=== PATIENT | male | born 1970 | race Caucasian/White ===

== ENCOUNTER 2023-07-04 04:32 | Emergency (ER) | payer OTHER, SELFPAY ==
[2023-07-04 04:35] VITALS: BP 142/92
--- NOTE | 2023-07-04 05:15 | ED.GENMED ---
History of Present Illness
General
Chief Complaint: Fall
Source: patient and spouse
Time Seen by Provider: 07/04/23 05:05
Travel History
Have you had any contact with someone who has COVID-19?: No
Do you have any symptoms of coronavirus? Fever > 100 degrees, chills, cough, shortness of breath, sore throat, loss of taste or smell, muscle aches, or headache?: No
History of Present Illness
History of Present Illness:
This patient is a 53-year-old male presents emergency department with complaints of discomfort after tripping over something while going to the bathroom in the middle the night about an hour prior to presentation, and striking the right anterior
lower chest on the nightstand. He noted immediate discomfort. This pain is worse with certain positions, coughing, or deep breath. He denies hemoptysis, back pain, head injury, loss of conscious, neck pain, numbness, tingling, or other complaints.
Past History
Past History
ED Past Medical History: HTN
ED Past Surgical History: Orthopedic
Social History
Tobacco: Non-smoker
Alcohol: Occasional
Drug: None
Personal:
Living: with family
Employment: Employed
Family History
Family History: Other (Noncontributory)
Phy Exam
Physical Exam
Physical Exam:
GENERAL: Alert , in no apparent distress
EYE: pupils equal and reactive, no photophobia
NECK: Supple, no significant adenopathy.
ENT: o/p clr, mmm, no signs of head or facial injury, no juan, no raccoon.
CARDIAC: Regular rate and rhythm .
LUNGS: Clear breath sounds bilaterally, no acute respiratory distress, no wheezes/rales/rhonchi. There is superficial abrasion noted at the right side anterior lower costal area with associated tenderness to palpation, no crepitus, no step-off
ABDOMEN: Soft, without focal tenderness, no r/g, no cvat
NEUROLOGICAL: Alert and oriented, no focal neuro deficits
SKIN: Warm and dry, skin intact.
MUSCULOSKELETAL: No edema, well perfused.
PSYCH: Normal and appropriate interaction.
Course
Orders/Labs/Results
Orders:
Orders
07/04/23 04:42
CR Ribs-right 3 Vw W/pa Chest* Urgent
Comment:
Reason For Exam: fall, pain, SOB
07/04/23 05:12
Oxycodone [Roxicodone] 10 mg PO NOW STA
Vital Signs
Initial and Last Documented VS:
Initial Vital Signs
Temp Pulse Resp BP Pulse Ox
98.1 F 96 22 142/92 95
07/04/23 04:35 07/04/23 04:35 07/04/23 04:35 07/04/23 04:35 07/04/23 04:35
Last Documented Vital Signs
Temp Pulse Resp BP Pulse Ox
98.1 F 96 22 142/92 95
07/04/23 04:35 07/04/23 04:35 07/04/23 04:35 07/04/23 04:35 07/04/23 04:35
*Critical Care Note
Total Time (30-74mins, 75-104mins- exclusive of procedures): Not Applicable
Update Note
Update Note:
Patient presents to the Emergency Department with ____chest wall injury
Number and Complexity of Problems Addressed at the Encounter
� Chronic conditions affecting care:
� Acute Exacerbation and/or Progression of Chronic Illness:
� Differential Diagnosis includes: But not limited to contusion, rib fracture, pneumothorax, hemothorax, etc.
Amount and/or Complexity of Data to be Reviewed and Analyzed
� I performed an independent evaluation of and my interpretation is:
EKG:
CT:
Xrays: Read by me, no pneumothorax, no effusion, no specific fracture noted
Laboratory Studies:
Other:
� Review of other/old records reveals:
� Clinical information was obtained by an independent historian: who is bedside
� Prescriptions/Medications Considered but not given:
� Further testing considered but not performed:
Risk of Complications and/or Morbidity or Mortality of Patient Management
� Social determinants of health affecting care:
� Discussion with other providers (PCP, Hospitalists, Consultants, etc):
� Escalation of care including admission/observation vs risk of discharge considered: 6:32 AM patient's pain improved although not fully resolved. No fracture or other abnormalities noted on x-ray, strongly suspect contusion
although patient aware that fracture is potentially possible. Management very similar in regards to anti-inflammatories, narcotics as needed with risk and benefits discussed with him regarding, continue deep breaths, etc. He asked that I refill
inhalers which I did. He is aware the importance of follow-up and reasons to return to the ER.
ED Attending Note
-
Portions of this chart may have been created with voice recognition software.� Occasional wrong word or��sound alike� substitutions may have occurred due to the inherent limitations of voice recognition software.
Discharge Plan
Departure
Discharge Problem:
Contusion of rib
Instructions: Taking Opioids Safely, Bruised Rib (DC), BLOOD PRESSURE
Prescriptions:
New
budesonide-formoterol [Symbicort] 80-4.5 mcg/actuation HFA aerosol inhaler
2 puff inhalation BID Qty: 10.2 0RF
albuterol sulfate 90 mcg/actuation aerosol powdr breath activated
2 inh inhalation Q4H PRN (Reason: sob) Qty: 1 0RF
oxycodone-acetaminophen [Percocet] 5-325 mg tablet
1 tab PO Q4HPRN PRN (Reason: pain) Qty: 13 0RF
Referrals:
NONE,* [Active] -
Activity Restrictions/Additional Instructions:
PLEASE SEE YOUR FAMILY DOCTOR AND CLOSE FOLLOW-UP. IF YOU DEVELOP INCREASING OR UNMANAGEABLE PAIN, FEVER, CHILLS, ABDOMINAL PAIN, TROUBLE BREATHING, OR OTHER WORRISOME SIGNS, PLEASE RETURN TO THE ER IMMEDIATELY.
Interventions
Interventions:
*Risk Screen - Suicide Last Done: 07/04/23 04:35
*General Assessment Last Done: 07/04/23 04:35
*Neglect/Abuse Screening Last Done: 07/04/23 04:35
[2023-07-04] MEDS: ROXICODONE 10 MG PO (05:17)
== END 2023-07-04 06:58 | disposition home or self-care (01) ==
LOC: EMR 04:32
PROVIDERS: EMERGENCY PHYSICIAN Emergency Medicine; FAMILY PHYSICIAN Nurse Practitioner Family
DX: S20.219A Contusion of unspecified front wall of thorax, initial encounter (principal); W19.XXXA Unspecified fall, initial encounter; I10 Essential (primary) hypertension
CPT/HCPCS: 99283; 71101

== ENCOUNTER 2024-08-25 06:16 | Day surgery (SDC) | payer OTHER, SELFPAY | END 2024-08-25 09:42 | disposition home or self-care (01) | LOC: GI 06:16 | PROVIDERS: ATTENDING PHYSICIAN Internal Medicine Gastroenterology; FAMILY PHYSICIAN Internal Medicine | DX: Z12.11 Encounter for screening for malignant neoplasm of colon (principal); K64.8 Other hemorrhoids; K57.30 Diverticulosis of large intestine without perforation or abscess without bleeding; D12.2 Benign neoplasm of ascending colon; Z80.0 Family history of malignant neoplasm of digestive organs | CPT/HCPCS: 45380; 88305 ==

== ENCOUNTER → 2025-04-13 17:15 | Outpatient (REF) | payer OTHER, SELFPAY | LOC: RAD 17:15 | PROVIDERS: ATTENDING PHYSICIAN Internal Medicine | DX: J06.9 Acute upper respiratory infection, unspecified (principal) | CPT/HCPCS: 71046 ==